=== PATIENT | female | born 1960 | race Two or more races ===

== ENCOUNTER → 2017-03-16 | Outpatient (CLI) | payer OTHER ==
[2017-03-15 16:16] VITALS: BMI 31.8
[2017-03-16 14:21] VITALS: BP 120/62; PULSE 82; RESP 16
--- NOTE | 2017-03-16 14:53 | P.CONS ---
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, at the long-term, and she continues to have severe neck pain ,and low back pain she was treated with physical therapy ,and with the medication, and patient had radiofrequency ablation of the medial branch lumbar area done at pain clinic at [facility] , but no intervention was done on her neck, she continued to have severe neck pain with radiation to the shoulder blade area bilaterally, pain is constant and increases with any neck movement and can still the pain is 3/10 and increases to 7-8/10 with any activity, she denies any fever, or night sweats , denies any change in the bowel movement or urination ,she denies any motor or sensory deficit , she is ambulating using a cane Past Medical History Past Medical History: Asthma, Eye Disorder, Fibromyalgia, GERD/Reflux, Osteoarthritis (OA) Additional Past Medical History / Comment(s): chronic pain syndrome,4 bulging discs in neck,5 bulging discs back,freq falls,steroid injection Dec 2016,has difficulty seeing at times due to fluid behing mark eyes History of Any Multi-Drug Resistant Organisms: None Reported Past Surgical History: Hysterectomy, Tubal Ligation Additional Past Surgical History / Comment(s): radio freq ablation Past Anesthesia/Blood Transfusion Reactions: No Reported Reaction, Motion Sickness Smoking Status: Current every day smoker Past Alcohol Use History: None Reported Additional Past Alcohol Use History / Comment(s): started smoking at age 18,1/ 2ppd Past Drug Use History: Marijuana Additional Drug Use History / Comment(s): medical marijuana uses 2 -3 times per mos. - Past Family History Mother Family Medical History: Cancer, Deep Vein Thrombosis (DVT) Additional Family Medical History / Comment(s): lung Father Family Medical History: Cancer Additional Family Medical History / Comment(s): stomach Medications and Allergies Home Medications Medication Instructions Recorded Confirmed Type ALPRAZolam [Xanax] 0.25 mg PO TID PRN 03/15/17 03/16/17 History Albuterol Inhaler [Ventolin Hfa 1 - 2 puff INHALATION Q6HR PRN 03/15/17 History Inhaler] Albuterol Nebulized [Ventolin 2.5 mg INHALATION Q6H PRN 03/15/17 03/16/17 History Nebulized] Calcium Carbonate [Calcium] 1,200 mg PO DAILY 03/15/17 03/16/17 History DULoxetine HCL [Cymbalta] 30 mg PO DAILY 03/15/17 03/16/17 History DULoxetine HCL [Cymbalta] 60 mg PO HS 03/15/17 03/16/17 History Ergocalciferol [Vitamin D2] 50,000 unit PO Q7D 03/15/17 03/16/17 History Fluticasone Propionate [Flonase 1 spray EA NOSTRIL DAILY 03/15/17 03/16/17 History Allergy Relief] Loratadine [Claritin] 10 mg PO DAILY 03/15/17 03/16/17 History Magnesium Oxide [Mag-Ox] 400 mg PO DAILY 03/15/17 03/16/17 History Pregabalin [Lyrica] 50 mg PO BID 03/15/17 03/16/17 History tiZANidine HCL [Zanaflex] 4 mg PO BID PRN 03/15/17 03/16/17 History traMADol HCL [Ultram] 50 mg PO Q6HR PRN 03/15/17 03/16/17 History Allergies Allergy/AdvReac Type Severity Reaction Status Date / Time cephalexin [From Keflex] Allergy hives Verified 03/16/17 14:02 sulfamethoxazole Allergy Rapid Verified 03/16/17 14:02 [From Bactrim] Heart Rate,skin prickling trimethoprim [From Bactrim] Allergy Rapid Verified 03/16/17 14:02 Heart Rate,skin prickling Physical Exam Vitals: Vital Signs Pulse Resp BP 03/16/17 14:04 82 16 120/62 Intake and Output 03/15/17 03/16/17 03/16/17 22:59 06:59 14:59 Other: Weight 83.007 kg Social history : smoker , NO ETOH , use marijuana Review of Systems : 1- Constitutional : no chills , no fever , no night sweats , 2- Ears : no ear discharge , no change in hearing 3-Nose, Mouth ,Throat ; no bleeding gums, no sore throat , no epistaxis , 4-Cardiovascular : Denies chest pain, , no orthopnea , no palpitation 5-Respiratory : Denies cough , no dyspnea , no hemoptysis 6-Gastrointestinal :, no change in bowel habits , no coffee- ground emesis . 7-Genitourinary : No hematuria , no discharge , no incontinence, 8-Musculoskeletal : No gait dysfunction , report low back pain , 9- Neurological : no ataxia , no tremor , no sezure , 10-Psychatric , no suicidal ideation no hallucination 11- Endocrine : no cold intolerence , no polyuria , no polydypsia , 12-Hematologic : no easy bleeding , no easy brusing , 13-Allergic / immunology : no angioedema , no wheezing ,no allergic rhinitis 14-Integumentary : no brttle nails , no change hair / nails , no foot/leg ulcers . Physical Examinations : 1-Constitutional : Cooperative , not in acute distress . 2-HEENT : nech ; supple , no Lymphadenopathy , no Thyromegaly , :eyes , no icterus, no photophobia . ENT : , normal oropharynx , no Thrush 3- Respiratory : Chest clear to auscultations Bilaterally , no wheezing . 4- Cardiovascular : regular rate and rhythem , S1 , S2 , no S3 , no S4. 5- Gastrointestinal: abdomen soft no tenderness , no organomegally . 6- Genitourinary : Defferred . 7-Integumentary : No cellulitis , no ulcers , normal skin turgor , no cyanotic . 8- neurologic : Cranial nerve II to XII intact , no focal neurological deffecit 9-psychatric : alert , oriented X 3 , appropriate affect , intact judgment and insight . 10-Lymphatic : no Lymphadenopathy. 11- musculoskeltal: normal gait Cervical Spine motor stregnth in the deltoid and biceps, normal right side , normal Left side motor stregnth biceps and the wrist extensors normal right side ,normal left side . motor stregnth in the triceps muscle . normal Right side , normal Left side deep tendon reflexes normal at the biceps , normal at Brachioradialis , normal at triceps. positive cervical facet loading test . Lumber spine moter stegnth lower extremities ,thigh and legs 5/5 Right side , 5/5 Left side deep tendon reflexes : normal Knee Jerk , normal ankle Jerk positive lumber facet Loading Test Range of motion of the lumbar spine Flexion 30 degrees, extension 10 degrees strait leg raising test , positive at 45 degree Fabere test positive RT and positive LT . Results Comments: MRI of the lumbar spine done 01/18/2015 showed neural foraminal narrowing at L4 5 and disc bulging and bilateral facet hypertrophy at L4 5 and L5-S1 MRI of the cervical spine= C4 5 uncovertebral joint arthritis, C5 6 posterior disc osteophyte complex , and unconvertebral joint arthropathy arthritis C6 7 and mild uncovertebral joint arthritis Assessment and Plan Plan: Assessment and plan= chronic low back pain secondary to lumbar degenerative disc disease , lumbar spondylosis with lumbar facet arthropathy , low back pain improved after the radiofrequency ablation of the medial branch lumbar area Chronic neck pain secondary to cervical degenerative disc disease and cervical spondylosis Currently most of the pain in the neck area is coming from the facet region a component, for this reason patient will be scheduled to have diagnostic medial branch block cervical area C3/C4/C5/C6 laterally and will do it twice if she had good pain relief then we will do the radiofrequency ablation of the medial paracervical Patient should continue to use her current pain medication she is getting prescription refill from her primary care Time with Patient: Greater than 30
== END | disposition home or self-care (01) ==
LOC: PNWHC3 12:02
PROVIDERS: ATTEND Specialist
DX: M50.30 Other cervical disc degeneration, unspecified cervical region (principal); M51.36 Other intervertebral disc degeneration, lumbar region; M47.812 Spondylosis without myelopathy or radiculopathy, cervical region; M47.816 Spondylosis without myelopathy or radiculopathy, lumbar region; M46.86 Other specified inflammatory spondylopathies, lumbar region; J45.909 Unspecified asthma, uncomplicated; M79.7 Fibromyalgia; K21.9 Gastro-esophageal reflux disease without esophagitis; F17.200 Nicotine dependence, unspecified, uncomplicated; Z79.899 Other long term (current) drug therapy; Z88.1 Allergy status to other antibiotic agents; Z88.2 Allergy status to sulfonamides
CPT/HCPCS: 99211

== ENCOUNTER 2017-04-26 07:12 | Day surgery (SDC) | payer OTHER ==
[2017-04-19 23:06] VITALS: BMI 31.8
[~2017-04-26 07:12] MED LIST: LACTATED RINGERS 1,000 ML IV SCH
[2017-04-26 07:53] VITALS: RESP 20; TEMP 97.5
[2017-04-26] MEDS ORDERED: LIDOCAINE 1% 20 ML VIAL (10MG/ML) FOR IV START INTRADERMA ONE (07:53)
[2017-04-26] MEDS ORDERED: KETOROLAC 30 MG/ML 1 ML VIAL IVP STA (09:09)
[2017-04-26] MEDS ORDERED: IV FLUID CONTINUATION 1,000 ML IV ONE (09:14)
--- NOTE | 2017-04-26 09:17 | P.PCN ---
Date of Procedure: 04/26/17 Procedure(s) Performed: PREOPERATIVE DIAGNOSIS: Cervical Spondylosis with Facet Arthropathy.without myelopathy Cervical DDD POSTOPERATIVE DIAGNOSIS: same ar Pre OP Diagnosis . PROCEDURES: Diagnostic Bilateral C3 ,C 4 , C5, medial branch blocks, with fluoroscopic guidance ANESTHESIA: Local with 1% lidocaine; moderate sedation with Versed.2 mg , and fentanyl 100 micrograms EBL: Minimal PROCEDURE INDICATION: The patient with neck pain secondary to cervical arthropathy unresponsive to more conservative treatments. PROCEDURE DESCRIPTION / TECHNIQUE: The patient was seen and identified in the preoperative area. Risks, benefits, complications, and alternatives were discussed with the patient, the patient agreed to proceed with the procedure and signed the consent. IV was started. Vital signs remained stable throughout the procedure. Patient was taken to the OR and time out was completed. The patient was placed in the prone position on the procedure table. A pillow was placed under the patients chest to increase the cervical interlaminar space. The cervical area was prepped and draped in the usual sterile fashion. Critical pause was taken. Vital signs were closely monitored during the procedure. Conscious sedation was used during the procedure to decrease patients anxiety. Using cross-table lateral fluoroscopy, the centroid of the trapezoid of right C3 , C4 , C5 was identified, marked, and localized with 1% lidocaine 1 ml at each level for skin and Sub Q infiltrations . Subsequently, a 22 G 3 spinal needle was advanced guided by fluoroscopy to the centroid of the trapezoid of Right C3, C4 , C5,. [place] tip position was confirmed at the centroid of the trapezoids of Right C3 , C4 , C5 with anteroposterior fluoroscopy. Subsequently, 1.5 ml of preservative-free Bupivacaine 0.5% mixed with Kenalog 20 mg and half ml of the mixture was injected after negative aspiration for blood and CSF. [place] was then removed intact the same procedure was repeated at the left C3, C4 , C5, levels. COMPLICATIONS: No acute complications DISPOSITION / PLANS: The patient was placed in a supine position and transferred to the recovery area in a stable condition for observation and was discharged from the recovery room after meeting discharge criteria. Home discharge instructions given to the patient by the staff. The patient was reexamined prior to discharge. The patient will schedule a follow up in the clinic in 2-4 weeks.
[2017-04-26 09:31] VITALS: BP 134/79; PULSE 84
--- NOTE | 2017-04-26 10:08 | FL ---
Fluoroscopy HISTORY: Pain 28 seconds fluoroscopy time supplied to the referring clinician. 4 intraoperative C-arm images docum ent the procedure. See dictated report from anesthesia.
== END 2017-04-26 10:11 | disposition home or self-care (01) ==
LOC: ORPAIN 07:12
PROVIDERS: ATTEND Specialist
DX: M47.812 Spondylosis without myelopathy or radiculopathy, cervical region (principal); M50.30 Other cervical disc degeneration, unspecified cervical region; J45.909 Unspecified asthma, uncomplicated; K21.9 Gastro-esophageal reflux disease without esophagitis; Z88.1 Allergy status to other antibiotic agents; Z88.2 Allergy status to sulfonamides
CPT/HCPCS: 64490; 64491; 64492; J2250; J3301; J3010; J1885; 99152; 99153

== ENCOUNTER 2017-05-25 08:03 | Day surgery (SDC) | payer OTHER ==
[2017-05-17 15:40] VITALS: BMI 31.8
[2017-05-25 08:38] VITALS: TEMP 97.4
[2017-05-25] MEDS ORDERED: LIDOCAINE 1% 20 ML VIAL (10MG/ML) FOR IV START INTRADERMA ONE (08:39)
--- NOTE | 2017-05-25 10:00 | P.PCN ---
Date of Procedure: 05/25/17 Procedure(s) Performed: PREOPERATIVE DIAGNOSIS: Cervical Spondylosis with Facet Arthropathy.without myelopathy POSTOPERATIVE DIAGNOSIS: Cervical Spondylosis Facet Arthropathy. Without myelopathy PROCEDURES: Diagnostic bilateral C3-4, C4-5 , C5-6, medial branch blocks, with fluoroscopic guidance ANESTHESIA: Local with 1% lidocaine; moderate sedation with Versed. 2 mg , and fentanyl 150 micrograms EBL: Minimal PROCEDURE INDICATION: The patient with neck pain secondary to cervical arthropathy unresponsive to more conservative treatments. PROCEDURE DESCRIPTION / TECHNIQUE: The patient was seen and identified in the preoperative area. Risks, benefits, complications, and alternatives were discussed with the patient, the patient agreed to proceed with the procedure and signed the consent. IV was started. Vital signs remained stable throughout the procedure. Patient was taken to the OR and time out was completed. The patient was placed in the prone position on the procedure table. A pillow was placed under the patients chest to increase the cervical interlaminar space. The cervical area was prepped and draped in the usual sterile fashion. Critical pause was taken. Vital signs were closely monitored during the procedure. Conscious sedation was used during the procedure to decrease patients anxiety. Using cross-table lateral fluoroscopy, the centroid of the trapezoid of right C3 , C4 , C5 , was identified, marked, and localized with 1% lidocaine 1 ml at each level for skin and Sub Q infiltrations . Subsequently, a 22 G 3 spinal needle was advanced guided by fluoroscopy to the centroid of the trapezoid of Right C3, C4 , C5, . [place] tip position was confirmed at the centroid of the trapezoids of Right C3 , C4 , C5 with anteroposterior fluoroscopy. Subsequently, 1.5 ml of preservative-free Bupivacaine 0.5% mixed with Dexamethasone 10 mg and half ml of the mixture was injected after negative aspiration for blood and CSF. [place] was then removed intact the same procedure was repeated at the left C3-4, C4-5, C5-6, levels. COMPLICATIONS: No acute complications. COMMENTS: DISPOSITION / PLANS: The patient was placed in a supine position and transferred to the recovery area in a stable condition for observation and was discharged from the recovery room after meeting discharge criteria. Home discharge instructions given to the patient by the staff. The patient was reexamined prior to discharge. The patient will schedule a follow up in the clinic in 2-4 weeks.
[2017-05-25] MEDS ORDERED: IV FLUID CONTINUATION 600 ML IV ONE (10:10)
--- NOTE | 2017-05-25 10:26 | FL ---
EXAMINATION TYPE: FL guided pain mgmt statistic DATE OF EXAM: 05/25/2017 HISTORY: Flouroscopy time 24 seconds of fluoroscopy provided. IMPRESSION: 1. Fluoroscopy time.
[2017-05-25 10:39] VITALS: BP 134/87; PULSE 84; RESP 16
== END 2017-05-25 10:47 | disposition home or self-care (01) ==
LOC: ORPAIN 08:03
PROVIDERS: ATTEND Specialist
DX: M47.812 Spondylosis without myelopathy or radiculopathy, cervical region (principal); J45.909 Unspecified asthma, uncomplicated; Z88.1 Allergy status to other antibiotic agents; Z88.2 Allergy status to sulfonamides
CPT/HCPCS: 64490; 64491; 64492; J2250; J3301; J3010; 99152; 99153

== ENCOUNTER 2017-10-16 06:36 | Day surgery (SDC) | payer OTHER ==
[2017-10-12 09:35] VITALS: BMI 32.8
[2017-10-16 07:21] VITALS: BP 114/55; PULSE 80; RESP 18; TEMP 97.8
[2017-10-16] MEDS ORDERED: LIDOCAINE 1% 20 ML VIAL (10MG/ML) FOR IV START INTRADERMA ONE (07:23)
--- NOTE | 2017-10-16 09:27 | P.PN ---
Progress Note - Text Progress Note Date: 10/16/17 This is 57 years old female with a chronic history of severe neck pain and headache , she diagnoses cervical spondylosis and cervical degenerative disc disease, Have done diagnostic medial branch block cervical area C 3/C4/C5 , bilaterally the first diagnostic medial branch block was done in 04/26/2017, and she reported that her neck pain improved more than 70 % ,after the block for a few hours, and the headache improved 4 weeks , and later on in 05/25/2017 did the second diagnostic medial branch block cervical area bilaterally at C3/C4/C5, and patient reported that she got similar result the neck pain improved more than 70% for a few hours ,and the headache improved for a few weeks, and she was scheduled for follow-up visit in June 2017, but she didn't come for the follow-up visit because she was sick , and she was scheduled today to have diagnostic medial branch block cervical area ( 3 rd injections ), because the patient had more than 50% improvement of her neck pain ,she would be good candidate ,to have radiofrequency ablation of the medial branch cervical area, and she will be scheduled to have the radiofrequency ablation of the medial branch C3/C4/C5 on the right side first, and later on she will be followed with the radiofrequency on the left side
== END 2017-10-16 09:25 | disposition home or self-care (01) ==
LOC: ORPAIN 06:36
PROVIDERS: ATTEND Specialist
DX: M47.812 Spondylosis without myelopathy or radiculopathy, cervical region (principal); M50.30 Other cervical disc degeneration, unspecified cervical region; Z53.8 Procedure and treatment not carried out for other reasons

== ENCOUNTER 2017-11-07 07:05 | Day surgery (SDC) | payer OTHER ==
[2017-11-03 10:51] VITALS: BMI 31.8
[2017-11-07] MEDS ORDERED: LIDOCAINE 1% 20 ML VIAL (10MG/ML) FOR IV START INTRADERMA ONE (07:55)
[2017-11-07 08:01] VITALS: RESP 16; TEMP 97.8
--- NOTE | 2017-11-07 08:35 | P.PCN ---
Date of Procedure: 11/07/17 Surgeon: Corin Uriostegui Pathology: none sent Condition: stable Disposition: PACU Description of Procedure: PREOPERATIVE DIAGNOSIS: Cervical spondylosis with Facet Arthropathy without myelopathy, cervicogenic headache POSTOPERATIVE DIAGNOSIS: Same as above PROCEDURES: Right Radiofrequency thermocoagulation, C3, C4, and C5 medial branch with Fluroscopy [place] ANESTHESIA: Local with 1% lidocaine; IV sedation with fentanyl and Versed. EBL: Minimal PROCEDURE INDICATION: The patient with neck pain secondary to cervical arthropathy who had more than 50% relief of her pain with previous diagnostic cervical medial branch block. PROCEDURE DESCRIPTION / TECHNIQUE: The patient was seen and identified in the preoperative area. Risks, benefits, complications, and alternatives were discussed with the patient, the patient agreed to proceed with the procedure and signed the consent. IV was started. Vital signs remained stable throughout the procedure. Patient was taken to the OR and time out was completed. The patient was placed in the prone position on the procedure table. A pillow was placed under the patients chest to increase the cervical interlaminar space. The cervical area was prepped and draped in the usual sterile fashion. Critical pause was taken. Vital signs were closely monitored during the procedure. Conscious sedation was used during the procedure to decrease patients anxiety. Using cross-table lateral fluoroscopy, the center of the trapezoid-shaped cervical pillars of C3, C4, and C5 were identified, marked, and localized with 1% lidocaine. Subsequently, a 20 [id number] radiofrequency cannula with a 10- mm active tip was advanced guided by fluoroscopy to the target points mentioned above. . Each site then underwent motor testing at 2 Hz and 0 to 3 volt with local stimulation, but no radicular symptoms down the arm. Thereafter C3 ,C4, and C5 sites underwent radiofrequency thermocoagulation at 80 degrees celsius for 90 seconds after injecting 0.5 ml of PF lidocaine 1%. After thermocoagulation, 1 ml of the block solution containing Dexamethasone 10 mg and 2 mL of preservative-free Ropivacaine was injected at the C3,C4, and C5 levels after negative aspiration of CSF and blood and with no paresthesias. Cannulas were retracted. Skin was cleansed and bandages were applied. COMPLICATIONS: No acute complications. COMMENTS: DISPOSITION / PLANS: The patient was placed in a supine position and transferred to the recovery area in a stable condition for observation and was discharged from the recovery room after meeting discharge criteria. Home discharge instructions given to the patient by the staff. The patient was reexamined prior to discharge.
[2017-11-07] MEDS ORDERED: IV FLUID CONTINUATION 1,000 ML IV ONE (08:43)
[2017-11-07 09:01] VITALS: BP 110/78; PULSE 88
--- NOTE | 2017-11-07 09:11 | FL ---
EXAMINATION TYPE: FL guided pain mgmt statistic DATE OF EXAM: 11/07/2017 HISTORY: Flouroscopy time 27 seconds of fluoroscopy provided. IMPRESSION: 1. Fluoroscopy time.
== END 2017-11-07 09:23 | disposition home or self-care (01) ==
LOC: ORPAIN 07:05
PROVIDERS: ATTEND Anesthesiology
DX: M47.812 Spondylosis without myelopathy or radiculopathy, cervical region (principal); J45.909 Unspecified asthma, uncomplicated; Z88.2 Allergy status to sulfonamides; Z88.1 Allergy status to other antibiotic agents
CPT/HCPCS: 64633; 64634 ×2; J2250; J1100; J2310; J2001; J3010; 99152; 99153

== ENCOUNTER 2017-11-29 07:47 | Day surgery (SDC) | payer OTHER ==
[2017-11-22 12:20] VITALS: BMI 32.8
[2017-11-29 08:51] VITALS: RESP 18; TEMP 98
[2017-11-29] MEDS ORDERED: LACTATED RINGERS 1,000 ML IV ONE (08:51)
[2017-11-29] MEDS ORDERED: LIDOCAINE 1% 20 ML VIAL (10MG/ML) FOR IV START INTRADERMA ONE (08:52)
--- NOTE | 2017-11-29 09:39 | P.PCN ---
Date of Procedure: 11/29/17 Procedure(s) Performed: PREOPERATIVE DIAGNOSIS: Cervical spondylosis with Facet Arthropathy without myelopathy. POSTOPERATIVE DIAGNOSIS: Cervical spondylosis with Facet Arthropathy without myelopathy. PROCEDURES: Radiofrequency thermocoagulation, Left C3, C4, C5 medial branch with Fluroscopy [place] ANESTHESIA: Local with 1% lidocaine 3 ml , moderate sedation with fentanyl 50 micrograms and Versed.2 mg EBL: Minimal PROCEDURE INDICATION: The patient with neck pain secondary to cervical arthropathy who had more than 50% relief of her pain with previous diagnostic cervical medial branch block. PROCEDURE DESCRIPTION / TECHNIQUE: The patient was seen and identified in the preoperative area. Risks, benefits, complications, and alternatives were discussed with the patient, the patient agreed to proceed with the procedure and signed the consent. IV was started. Vital signs remained stable throughout the procedure. Patient was taken to the OR and time out was completed. The patient was placed in the prone position on the procedure table. A pillow was placed under the patients chest to increase the cervical interlaminar space. The cervical area was prepped and draped in the usual sterile fashion. Critical pause was taken. Vital signs were closely monitored during the procedure. Conscious sedation was used during the procedure to decrease patients anxiety. Using cross-table lateral fluoroscopy, the centroid of the trapezoid of the left C3, C4, C5, were identified, marked, and localized with 1% lidocaine. Subsequently, a 20 [id number] radiofrequency cannula with a 10-mm active tip was advanced guided by fluoroscopy to the centroid of the trapezoid of C3, C4, C5, . Needle tip position was confirmed at the centroid of the trapezoids of left C3, C4, C5,with anteroposterior fluoroscopy. Each site then underwent sensory testing at 50 Hz and 0 to 1 volt and motor testing at 2 Hz and 0 to 3 volt with local stimulation, but no radicular symptoms down the arm. Thereafter C3, C4,C5 sites underwent radiofrequency thermocoagulation at 80 degrees celsius for 90 seconds after injecting 0.5 ml of PF Ropivacaine 0.5%. After thermocoagulation, 1 ml of the block solution containing Kenalog 40 mg and 3 mL of preservative-free Ropivacaine 0.5% was injected at the left C3, C4, C5, levels after negative aspiration of CSF and blood and with no paresthesias. Cannulas were retracted while injecting lidocaine 1% until the needle is out. Skin was cleansed and bandages were applied. COMPLICATIONS: No acute complications. DISPOSITION / PLANS: The patient was placed in a supine position and transferred to the recovery area in a stable condition for observation and was discharged from the recovery room after meeting discharge criteria. Home discharge instructions given to the patient by the staff. The patient was reexamined prior to discharge. The patient will schedule a follow up in the clinic in 2-4 weeks.
[2017-11-29] MEDS ORDERED: IV FLUID CONTINUATION 1,000 ML IV ONE (09:47)
--- NOTE | 2017-11-29 09:55 | FL ---
EXAMINATION TYPE: FL guided pain mgmt statistic DATE OF EXAM: 11/29/2017 HISTORY: Flouroscopy time 28 seconds of fluoroscopy provided. IMPRESSION: 1. Fluoroscopy time.
[2017-11-29 10:06] VITALS: BP 106/68; PULSE 80
== END 2017-11-29 10:22 | disposition home or self-care (01) ==
LOC: ORPAIN 07:47
PROVIDERS: ATTEND Specialist
DX: M47.812 Spondylosis without myelopathy or radiculopathy, cervical region (principal); Z88.1 Allergy status to other antibiotic agents; Z88.2 Allergy status to sulfonamides; J45.909 Unspecified asthma, uncomplicated; M79.7 Fibromyalgia; K21.9 Gastro-esophageal reflux disease without esophagitis; F17.200 Nicotine dependence, unspecified, uncomplicated
CPT/HCPCS: 64633; 64634; J2250; J3301; J3010; 99152; 99153

== ENCOUNTER → 2018-01-02 | Outpatient (CLI) | payer OTHER ==
[2018-01-02 12:54] VITALS: BP 105/65; PULSE 82; RESP 18; TEMP 98.3
--- NOTE | 2018-01-03 07:40 | P.PAINPG ---
Subjective Progress Note Date: 01/02/18 This is 57 years old female with a chronic history of severe neck pain and headache and also low back pain, he is diagnosed with cervical spondylosis, and lumbar spondylosis, recently we have done radiofrequency ablation of the cervical medial branch, she reported that her neck pain improved significantly and also the headache improved significantly after the radiofrequency, currently most of her pain is in the low back area , which is increased with any activity and interfering with her quality of life, pain is constant and increases with any movement, the intensity of the pain 6/10 and increases to 8/ 10 with any activity, she denies any motor or sensory deficit she denies any fever or night sweats, she'll continue to use Ultram 50 mg 3 times a day and Lyrica 150 mg 3 times a day she denies any side effect of the medication she denies any suicidal ideation, and she reported the current medication helping to improve her pain. Objective - Vital Signs Vital signs: Vital Signs Temp 98.3 F 01/02/18 12:49 Pulse 82 01/02/18 12:49 Resp 18 01/02/18 12:49 BP 105/65 01/02/18 12:49 Pulse Ox 94 L 01/02/18 12:49 Intake & Output 01/02/18 01/03/18 01/03/18 18:59 06:59 18:59 Weight 83.007 kg - Exam Physical Examinations : 1-Constitutiona : Cooperative , not in acute distress . 2-HEENT : nech ; supple , no Lymphadenopathy , normal thyroid size . eyes : no ptosis , no icterus , no photophobia . ENT : normal of hearing , normal oropharynx , no Thrush . 3- Respiratory : Chest clear to auscultations Bilaterally , no wheezing , no Rhonchi . 4- Cardiovascular : regular rate and rhythem , S1 , S2 , no S3 , no S4. 5- Gastrointestinal : abdomen soft no tenderness , bowel sounds , no organomegally . 6- Genitourinary : Defferred . 7- neurologic : Cranial nerve II to XII intact , no focal neurological deffecit . 8-psychatric : alert , oriented X 3 , appropriate affect , intact judgment and insight . 9-Lymphatic : no Lymphadenopathy . 10- musculoskeltal : Cervical Spine motor stregnth in the deltoid and biceps, normal right side , normal Left side motor stregnth biceps and the wrist extensors normal right side ,normal left side . motor stregnth in the triceps muscle . normal Right side , normal Left side deep tendon reflexes normal at the biceps , normal at Brachioradialis , normal at triceps Lumber spine moter stegnth lower extremities ,thigh and legs 5/5 Right side , 5/5 Left side deep tendon reflexes : normal Knee Jerk , normal ankle Jerk positive lumber facet Loading Test Range of motion of the lumbar spine Flexion 30 degrees, extension 10 degrees strait leg raising test , positive at 30 degree Fabere test positive RT and positive LT . Assessment and Plan Plan: Assessment and plan=1 chronic neck pain and headaches secondary to cervical spondylosis. Improved after the radiofrequency ablation of the cervical medial branch. 2-chronic low back pain secondary to lumbar spondylosis= patient will be scheduled for diagnostic medial branch block lumbar area L3 to S1 . If she had a good result she would be good candidate for radiofrequency ablation Patient currently using Lyrica 150 mg 3 times a day , and Ultram 50 mg 3 times a day she is getting prescription refills from her primary care, she denies any side effect from the medication, and she should continue to use the current medication PQRS Measure Charge Sheet Measure #130: Documentation of Current Meds in Medical Chart: Patient's medications documented in chart Measure #226: Tobacco Use: Screen & Cessation Intervention: Pt not a tobacco user Measure #111: Pneumonia Vaccination: Pneumococcal vaccine NOT administered or previously given Measure #47: Advance Care Plan: Advance care planning discussed & documented, pt chose/unable to give Measure #412: Opioid Treatment Agreement: No documentation of signed opioid treatment agreement Measure #408: Opioid Therapy Follow-up Evaluation: Patient had NO f/u eval minimum every 3 months during opioid therapy Measure #317: Preventitive Care & Scrn High Bld Press & F/U: Normal blood pressure, f/u not required Measure #128: Body Mass Index (BMI) Screening & Follow-up: BMI documented ABOVE normal parameters - f/u documented Measure #131: Pain Assessment & Follow-up: Pain positive & plan documented, Follow-up scheduled Measure #431: Unhealthy Alcohol Use Preventative Care & Scrn: Patient not identified as an unhealthy alcohol user PQRS Narrative: Smoking Status Current every day smoker Do You Want the Pneumonia No Vaccine AT THIS TIME? Blood Pressure 105/65 Pain Intensity [Lower Back] 8 Scale Used Numeric (1 - 10) Hx Alcohol Use (MH) No Home Medications: Ambulatory Orders ALPRAZolam [Xanax] 0.25 mg PO TID PRN 03/15/17 Albuterol Inhaler [Ventolin Hfa Inhaler] 1 - 2 puff INHALATION Q6HR PRN Albuterol Nebulized [Ventolin Nebulized] 2 puff INHALATION Q6H PRN 03/15/17 DULoxetine HCL [Cymbalta] 30 mg PO DAILY 03/15/17 DULoxetine HCL [Cymbalta] 60 mg PO HS 03/15/17 Fluticasone Propionate [Flonase Allergy Relief] 2 spray EA NOSTRIL DAILY Magnesium Oxide [Mag-Ox] 400 mg PO DAILY 03/15/17 Pregabalin [Lyrica] 150 mg PO TID 03/15/17 Cholecalciferol [Vitamin D3] 4,000 unit PO DAILY 10/12/17 Cyclobenzaprine [Flexeril] 10 mg PO TID PRN 10/12/17 Fexofenadine/Pseudoephedrine [Silvina-D 24 Hour Tablet] 1 each PO DAILY traMADol HCL [Ultram] 50 mg PO TID PRN 10/12/17 Controlled Substance Measures - Controlled Substance Measures Is patient prescribed a controlled substance at discharge?: No When asked, does pt state using other controlled substances?: No If prescribed controlled substance>3 days was MAPS reviewed?: No If Rx opioid, was Start Talking consent form obtained?: No If opioid is for acute pain is fill amount 7 days or less?: No Was information provided regarding opioid addiction?: No
== END | disposition home or self-care (01) ==
LOC: PNWHC3 12:14
PROVIDERS: ATTEND Specialist
DX: G89.29 Other chronic pain (principal); M47.812 Spondylosis without myelopathy or radiculopathy, cervical region; M47.816 Spondylosis without myelopathy or radiculopathy, lumbar region; F17.200 Nicotine dependence, unspecified, uncomplicated; Z79.899 Other long term (current) drug therapy; Z98.890 Other specified postprocedural states
CPT/HCPCS: 99211